=== PATIENT | female | born 1960 | race Two or more races ===

== ENCOUNTER 2018-09-18 07:27 | Emergency (ER) | payer OTHER ==
[~2018-09-18] VITALS: Ht 157.5 cm; Wt 68.0 kg
[2018-09-18 07:35] VITALS: BP 136/86
--- NOTE | 2018-09-18 07:35 | NUR ---
ED Nurse Note: A/OX4. BROUGHT IN BY [id number] FROM BUS DUE TO PAIN 10/10 ON RIGHT SHOULDER S/P SLIPPED AND FALL. NO HEAD INJURY REPORTED. FULL ROM ON BILATERAL SHOULDER SEEN.
[2018-09-18] MEDS ORDERED: Tylenol #3 tab (300mg/30mg) PO ONE (07:45)
--- NOTE | 2018-09-18 09:19 | Diagnostic Imaging Report ---
EXAM: XR Lumbar Spine, 2 or 3 Views CLINICAL HISTORY: PAIN TECHNIQUE: Frontal and lateral views of the lumbar spine. COMPARISON: No relevant prior studies available. FINDINGS: Vertebrae: Unremarkable. No acute fracture. Normal alignment. Disc spaces: No acute findings. No significant narrowing. Soft tissues: Unremarkable. IMPRESSION: Normal lumbar spine x-rays.
--- NOTE | 2018-09-18 09:29 | Diagnostic Imaging Report ---
EXAM: CT Cervical Spine Without Intravenous Contrast CLINICAL HISTORY: PAIN TECHNIQUE: Axial computed tomography images of the cervical spine without intravenous contrast. CTDI is 18.59 mGy and DLP is 371 mGy-cm. One or more of the following dose reduction techniques were used: automated exposure control, adjustment of the mA and/or kV according to patient size, use of iterative reconstruction technique. COMPARISON: No relevant prior studies available. FINDINGS: Vertebrae: Unremarkable. No acute fracture. Normal alignment. Discs/spinal canal/neural foramina: No significant disc space narrowing. No acute findings. No spinal canal stenosis. Soft tissues: Unremarkable. IMPRESSION: Unremarkable study.
--- NOTE | 2018-09-18 09:32 | Emergency Room Report ---
History of Present Illness General Chief Complaint: Multiple Trauma/Fall Source: Patient, EMS Present Illness HPI 57 yo M presents to ED c/o neck and back pain s/p fall. brought in by EMS. mechanical slip and fall this morning. c/o headache, neck pain and lower back pain. throbbing, 10/10, nonradiating. denies nausea/vomiting. denies photophobia, blurry vision, N/V. denies any other injuries. no other aggravating or relieving factors. denies any other associated symptoms. Allergies: Coded Allergies: No Known Allergies (Unverified , 09/18/18) Patient History Past Medical History: none Past Surgical History: none Pertinent Family History: none Social History: Denies: smoking, alcohol use, drug use Now: No Immunizations: UTD Reviewed Nursing Documentation: PMH: Agreed; PSxH: Agreed Nursing Documentation-PMH Past Medical History: No History, Except For Hx Cardiac Problems: No - high cholesterol Review of Systems All Other Systems: negative except mentioned in HPI Physical Exam Vital Signs Date Time Temp Pulse Resp B/P (MAP) Pulse Ox O2 Delivery O2 Flow Rate FiO2 09/18/18 07:30 98.2 68 18 136/86 94 Room Air Sp02 EP Interpretation: reviewed, normal General Appearance: no apparent distress, alert, GCS 15, non-toxic Head: normocephalic, other - TTP posterior scalp Eyes: bilateral eye normal inspection, bilateral eye PERRL, bilateral eye EOMI ENT: hearing grossly normal, normal pharynx, no angioedema, normal voice Neck: tender lateral, tender midline Respiratory: normal inspection Cardiovascular #1: normal inspection Gastrointestinal: normal inspection Rectal: deferred Genitourinary: no CVA tenderness Musculoskeletal: normal inspection Neurologic: alert, oriented x3, responsive, motor strength/tone normal, sensory intact, speech normal Psychiatric: normal inspection Skin: normal inspection Lymphatic: normal inspection Medical Decision Making Diagnostic Impression: Primary Impression: Head injury Qualified Codes: S09.90XA - Unspecified injury of head, initial encounter Additional Impression: Back contusion Qualified Codes: S20.229A - Contusion of unspecified back wall of thorax, initial encounter ER Course Hospital Course 57-year-old M presents to ED complaining of head,neck and back pain s/p trip and fall Differential diagnoses include: Fracture, dislocation, sprain, contusion Clinical course Patient placed on stretcher. After initial history and physical, I ordered pain medications, CT of head/cspine, Lspine films CT head and C spine unremarkable L spine film shows no fx On reassessment pain is improved. Discussed findings with patient. Reassurance given. Safely discharged. Patient follow up. We'll provide referrals Diagnosis - head injury, back contusion Stable and discharged to home with prescription for tylenol, robaxin, lidoderm. weight bear as tolerated. Followup with PMD. Return to ED if symptoms recur or worsen Other X-Ray Diagnostic Results Other X-Ray Diagnostic Results : X-Ray ordered: L spine # of Views/Limited Vs Complete: 3 View Indication: Pain EP Interpretation: Yes Interpretation: no dislocation, no soft tissue swelling, no fractures Impression: No acute disease Electronically Signed by: Electronically signed by Marc Valle MD CT/MRI/US Diagnostic Results CT/MRI/US Diagnostic Results #1: Imaging Test Ordered: CT C spine Impression no acute process CT/MRI/US Diagnostic Results #2: Imaging Test Ordered: CT Head Impression no acute process Last Vital Signs Date Time Temp Pulse Resp B/P (MAP) Pulse Ox O2 Delivery O2 Flow Rate FiO2 09/18/18 08:26 98.2 09/18/18 07:35 68 18 Room Air 09/18/18 07:35 136/86 94 Status: improved Disposition: HOME, SELF-CARE Condition: Stable Scripts Lidocaine (Lidoderm) 1 Each Adh..patch 1 PATCH TOPIC DAILY, #7 PATCH 0 Refills Patch(es) may remain in place for up to 12 hours in any 24-hour period. Prov: Marc Valle MD 09/18/18 Methocarbamol* (ROBAXIN-750*) 750 Mg Tablet 750 MG PO TID, #21 TAB 0 Refills Prov: Marc Valle MD 09/18/18 Ibuprofen* (MOTRIN*) 600 Mg Tablet 600 MG ORAL Q8H PRN for For Pain, #30 TAB 0 Refills Prov: Marc Valle MD 09/18/18 Referrals: NOT CHOSEN IPA/,REFERRING (PCP) Marc Valle MD Sep 18, 2018 09:32
--- NOTE | 2018-09-18 09:49 | Diagnostic Imaging Report ---
EXAM: CT Head Without Intravenous Contrast CLINICAL HISTORY: PAIN TECHNIQUE: Axial computed tomography images of the head/brain without intravenous contrast. CTDI is 70.38 mGy and DLP is 1411 mGy-cm. One or more of the following dose reduction techniques were used: automated exposure control, adjustment of the mA and/or kV according to patient size, use of iterative reconstruction technique. COMPARISON: No relevant prior studies available. FINDINGS: Brain: Unremarkable. No hemorrhage. No significant white matter disease. No edema. Ventricles: Unremarkable. No ventriculomegaly. Bones/joints: Unremarkable. No acute fracture. Soft tissues: Unremarkable. Sinuses: Unremarkable as visualized. No acute sinusitis. Mastoid air cells: Unremarkable as visualized. No mastoid effusion. IMPRESSION: Normal head/brain CT.
[2018-09-18] MEDS ORDERED: ROBAXIN-750750 MG PO (10:03)
[2018-09-18] MEDS ORDERED: LIDODERM700 M1 TOPIC (10:03)
[2018-09-18] MEDS ORDERED: IBUPROFEN600 MG ORAL (10:03)
[2018-09-18 10:09] VITALS: BP 136/86
--- NOTE | 2018-09-18 10:10 | NUR ---
ED Nurse Note: Pt cleared DC by Dr. ceja. Pt is A/Ox4, VSS, DC instruction and prescriptions given, pt verbalized understanding. ID wristband removed. All belongings given to pt. Pt ambulated out of ER with steady gait.
== END 2018-09-18 10:10 | disposition home or self-care (01) ==
LOC: EDBD 07:27 → EMR 08:03
DX: S00.03XA Contusion of scalp, initial encounter (principal); S30.0XXA Contusion of lower back and pelvis, initial encounter; W01.0XXA Fall on same level from slipping, tripping and stumbling without subsequent striking against object, initial encounter; Y92.9 Unspecified place or not applicable; R51 Headache; M54.2 Cervicalgia
CPT/HCPCS: 70450; 72020; 72125; 99284